=== PATIENT | male | born 1965 | race Caucasian/White ===

== ENCOUNTER 2019-01-12 23:22 | Inpatient (IN) ==
[2019-01-12] MEDS ORDERED: ALUM/MAG/SIMETH/LIDO VISC 1:1 30 ML BOTTLE PO STA (23:52)
[2019-01-12] MEDS ORDERED: SODIUM CHLORIDE 0.9% 1,000 ML IV STA (23:52)
[2019-01-12] MEDS ORDERED: ONDANSETRON 4 MG/2 ML VIAL IV STA (23:52)
[2019-01-13 00:15] LABS: Basophils # 0.1 10*3/uL (0.0-0.2); Basophils % 0.7 % (0.0-0.8); Eosinophils # 0.1 10*3/uL (0.0-0.87); Eosinophils % 1.4 % (0.00-10.9); Hematocrit 38.6 VOL% (42.0-52.0); Hemoglobin 13.4 GM/DL (14.0-18.0); Immature Granulocytes % 0.2 %; Immature Granulocytes Absolute 0.02 #; Lymphocytes # 1.2 10*3/uL (1.4-4.0); Mean Corpuscular HGB Conc 34.7 GM/DL (32-36); Mean Platelet Volume 10.2 FL (9.6-12.0); Monocytes % 7.9 % (1.7-12.7); Neutrophils % 74.8 % (38.7-73.9); Platelet Count 264 T/CUMM (130-400); Red Blood Count 4.02 MC/CUMM (3.8-5.5); Red Cell Distribution Width 12.4 % (9.3-17.3); White Blood Count 8.1 T/CUMM (4-12)
[2019-01-13 00:28] LABS: Apearance,Urine CLEAR (Clear); Bilirubin,Urine Negative (Negative); Blood, Urine Negative (Negative); Glucose,Urine (UA) >=500 mg/dL (Negative); Hyaline Casts,Urine 3 /LPF (0-3); Ketones,Urine Negative (Negative); Mucus,Urine Occasional /LPF (Occasional); Nitrite,Urine Negative (Negative); Protein,Urine Negative; RBC,Urine 1 /HPF (0-4); Urine Color Straw (Yellow); Urine Specific Gravity 1.006 (1.001-1.035); Urine Urobilinogen < 2.0 EU/DL (0.2-1.0); WBC,Urine <1 /HPF (0-6)
[2019-01-13] MEDS ORDERED: METOCLOPRAMIDE 10 MG/2 ML VIAL IV STA (01:11)
[2019-01-13] MEDS ORDERED: MORPHINE 4 MG/1 ML VIAL IV STA (01:11)
[2019-01-13] MEDS ORDERED: PANTOPRAZOLE 40 MG VIAL IV STA (01:11)
[2019-01-13 01:15] LABS: Albumin 4.3 G/DL (3.4-5.0); Bilirubin,Total 0.6 MG/DL (0.2-1.0); Osmolality,Calculated 267.5 MOS/KG (273-304); Total Protein 6.9 G/DL (6.4-8.3)
[2019-01-13] MEDS ORDERED: ONDANSETRON 4 MG/2 ML VIAL IV PRN (03:08)
[2019-01-13] MEDS ORDERED: GLUCAGON 1 MG VIAL IM PRN (03:08)
[2019-01-13] MEDS ORDERED: NICOTINE 21 MG/24 HR PATCH TRANSDERM PRN (03:08)
[2019-01-13] MEDS ORDERED: DEXTROSE 50% 25 GM/50 ML VIAL IV PRN (03:08)
[2019-01-13] MEDS ORDERED: LORazepam 2 MG/1 ML VIAL IV PRN (03:22)
[2019-01-13 03:42] LABS: Risk Ratio 1.81; VLDL CHOLESTEROL 24.6 MG/DL
[2019-01-13] MEDS: MORPHINE 4 MG/1 ML VIAL IV PRN ×5 (03:47→21:29)
[2019-01-13] MEDS ORDERED: INFLUENZA VIRUS VACCINE 0.5 ML SYRINGE IM ONE (04:43)
[2019-01-13] MEDS: SODIUM CHLORIDE 0.9% 1,000 ML IV SCH ×3 (05:24→12:40)
[2019-01-13 05:37] LABS: Barbiturates Screen,Urine Negative (Negative); Benzodiazepines Screen,Urine Negative (Negative); Cannabinoid Screen,Urine Negative (Negative); Opiate Screen,Urine Positive (Negative); Phencyclidine Screen,Urine Negative (Negative)
[2019-01-13] MEDS: INSULIN REGULAR 100 UNIT/ML SUBCUT SCH ×4 (07:16→21:21)
[2019-01-13] MEDS: THIAMINE 200 MG/2 ML VIAL IM SCH (08:00)
[2019-01-13] MEDS: INSULIN GLARGINE 100 UNIT/ML SUBCUT SCH ×2 (08:01→21:25)
[2019-01-13] MEDS: ACETAMINOPHEN 500 MG TABLET PO PRN ×2 (14:16→19:32)
[2019-01-13] MEDS: POTASSIUM CHLORIDE INJ 20 MEQ in LACTATED RINGERS 1,000 ML IV SCH ×2 (14:18→19:26)
[2019-01-14] MEDS: POTASSIUM CHLORIDE INJ 20 MEQ in LACTATED RINGERS 1,000 ML IV SCH ×5 (01:25→21:38)
[2019-01-14] MEDS: MORPHINE 4 MG/1 ML VIAL IV PRN ×3 (01:29→16:05)
[2019-01-14 05:22] LABS: Albumin 3.5 G/DL (3.4-5.0); Bilirubin,Total 0.8 MG/DL (0.2-1.0); Total Protein 6.4 G/DL (6.4-8.3)
[2019-01-14] MEDS: INSULIN REGULAR 100 UNIT/ML SUBCUT SCH ×4 (07:52→20:37)
[2019-01-14] MEDS: THIAMINE 200 MG/2 ML VIAL IM SCH (08:41)
[2019-01-14] MEDS: INSULIN GLARGINE 100 UNIT/ML SUBCUT SCH ×2 (08:42→20:36)
[2019-01-14] MEDS: POLYETHYLENE GLYCOL POWDER 17 GM PACK PO SCH ×2 (08:43→20:37)
[2019-01-14] MEDS ORDERED: CYCLOBENZAPRINE 10 MG TABLET PO PRN (10:17)
[2019-01-14] MEDS: ASPIRIN EC 81 MG TABLET PO SCH (10:27)
[2019-01-14] MEDS: amLODIPine 10 MG TABLET PO SCH (10:27)
[2019-01-14] MEDS: METOPROLOL SUCCINATE XL 50 MG TABLET PO SCH (10:27)
[2019-01-14] MEDS: ATORVASTATIN 40 MG TABLET PO SCH (10:27)
[2019-01-14] MEDS: ACETAMINOPHEN 500 MG TABLET PO PRN (11:21)
[2019-01-15] MEDS: POTASSIUM CHLORIDE INJ 20 MEQ in LACTATED RINGERS 1,000 ML IV SCH (02:50)
[2019-01-15] MEDS: MORPHINE 4 MG/1 ML VIAL IV PRN (03:18)
[2019-01-15 06:01] LABS: Basophils % 0.8 % (0.0-0.8); Eosinophils # 0.2 10*3/uL (0.0-0.87); Hematocrit 34.4 VOL% (42.0-52.0); Hemoglobin 11.8 GM/DL (14.0-18.0); Immature Granulocytes % 0.2 %; Immature Granulocytes Absolute 0.01 #; Lymphocytes # 1.2 10*3/uL (1.4-4.0); Lymphocytes % 23.3 % (21.2-54.2); Mean Corpuscular HGB Conc 34.3 GM/DL (32-36); Mean Corpuscular Volume 97.5 FL (87-102); Mean Platelet Volume 9.9 FL (9.6-12.0); Monocytes % 11.3 % (1.7-12.7); Neutrophils % 60.4 % (38.7-73.9); Platelet Count 193 T/CUMM (130-400); Red Blood Count 3.53 MC/CUMM (3.8-5.5); Red Cell Distribution Width 12.2 % (9.3-17.3)
[2019-01-15 06:19] LABS: Calcium 9.3 MG/DL (8.5-10.1); Osmolality,Calculated 277.7 MOS/KG (273-304)
[2019-01-15 07:42] VITALS: BP 136/94
[2019-01-15] MEDS ORDERED: hydroCHLOROthiazide 25 MG TABLET PO SCH (09:00)
[2019-01-15] MEDS: ATORVASTATIN 40 MG TABLET PO SCH (09:44)
[2019-01-15] MEDS: amLODIPine 10 MG TABLET PO SCH (09:45)
[2019-01-15] MEDS: METOPROLOL SUCCINATE XL 50 MG TABLET PO SCH (09:45)
[2019-01-15] MEDS: ASPIRIN EC 81 MG TABLET PO SCH (09:45)
[2019-01-15] MEDS: THIAMINE 200 MG/2 ML VIAL IM SCH (09:45)
[2019-01-15] MEDS: INSULIN GLARGINE 100 UNIT/ML SUBCUT SCH (09:46)
[2019-01-15] MEDS: INSULIN REGULAR 100 UNIT/ML SUBCUT SCH (09:46)
[2019-01-15] MEDS: POLYETHYLENE GLYCOL POWDER 17 GM PACK PO SCH (09:47)
== END 2019-01-15 10:05 | disposition home or self-care (01) | DRG 439 ==
LOC: N.ED 23:22 → N.EDINP 01-13 03:08 → N.3E 01-13 04:37
PROVIDERS: ADMIT Emergency Medicine; ATTEND Emergency Medicine

== ENCOUNTER 2022-01-10 14:27 | Inpatient (IN) ==
[2022-01-10] MEDS ORDERED: SODIUM CHLORIDE 0.9% 1,000 ML IV STA (14:46)
[2022-01-10 15:18] LABS: Alanine Aminotransferase 36 U/L (16-61); Albumin 3.5 G/DL (3.4-5.0); Alkaline Phosphatase 171 U/L (45-117); Aspartate Amino Transferase 30 U/L (0-37); Blood Urea Nitrogen 34 MG/DL (7-18); Calcium 8.2 MG/DL (8.5-10.1); Carbon Dioxide 4 MMOL/L (21-32); Chloride 84 MMOL/L (98-107); Osmolality,Calculated 307.2 MOS/KG (273-304); Total Protein 6.2 G/DL (6.4-8.2)
[2022-01-10 15:22] LABS: Glucose 1137 MG/DL (74-106)
[2022-01-10 15:23] LABS: Potassium 6.7 MMOL/L (3.5-5.1); Sodium 120 MMOL/L (136-145)
[2022-01-10] MEDS ORDERED: INSULIN REGULAR 100 UNIT/ML IV ONE (15:23)
[2022-01-10 15:24] LABS: Basophils # 0.1 10*3/uL (0.0-0.2); Basophils % 0.6 % (0.0-0.8); Eosinophils % 0.1 % (0.00-10.9); Hematocrit 31.2 VOL% (42.0-52.0); Hemoglobin 9.1 GM/DL (14.0-18.0); Immature Granulocytes % 0.8 %; Immature Granulocytes Absolute 0.13 #; Lymphocytes # 1.2 10*3/uL (1.4-4.0); Lymphocytes % 7.4 % (21.2-54.2); Mean Corpuscular HGB Conc 29.2 GM/DL (32-36); Mean Corpuscular Volume 113.5 FL (87-102); Mean Platelet Volume 10.6 FL (9.6-12.0); Monocytes # 1.3 10*3/uL (0.11-0.8); Monocytes % 7.7 % (1.7-12.7); Neutrophils % 83.4 % (38.7-73.9); Platelet Count 342 T/CUMM (130-400); Red Blood Count 2.75 MC/CUMM (3.8-5.5); Red Cell Distribution Width 12.7 % (9.3-17.3); White Blood Count 16.3 T/CUMM (4-12)
[2022-01-10] MEDS ORDERED: INSULIN REGULAR DRIP 100 ML IV PRN (15:28)
[2022-01-10] MEDS ORDERED: LACTATED RINGERS 2,000 ML IV ONE (15:32)
[2022-01-10] MEDS ORDERED: MAGNESIUM SULF RIDER 2 GM/50 ML PREMIX IV PRN (15:42)
[2022-01-10] MEDS ORDERED: MAGNESIUM SULF RIDER 4 GM/100 ML PREMIX IV PRN (15:42)
[2022-01-10] MEDS ORDERED: DEXTROSE 50% 25 GM/50 ML VIAL IV PRN (15:42)
[2022-01-10] MEDS ORDERED: DEXTROSE 10% 250 ML BAG IV PRN ×2 (15:42)
[2022-01-10] MEDS ORDERED: GLUCAGON 1 MG VIAL IM PRN (15:42)
[2022-01-10] MEDS ORDERED: POTASSIUM CHLORIDE RIDER 10 MEQ/100 ML PREMIX IV PRN (15:42)
[2022-01-10] MEDS ORDERED: SODIUM CHLORIDE 0.9% IV PRN (15:42)
[2022-01-10] MEDS ORDERED: SODIUM PHOSPHATE IV PRN (15:42)
[2022-01-10 16:42] LABS: Phosphorous 10.3 MG/DL (2.5-4.9)
[2022-01-10] MEDS ORDERED: INSULIN GLARGINE 100 UNIT/ML SUBCUT SCH (17:00)
[2022-01-10] MEDS ORDERED: CYCLOBENZAPRINE 10 MG TABLET PO PRN (17:18)
[2022-01-10] MEDS ORDERED: ONDANSETRON 4 MG/2 ML VIAL IV PRN (17:21)
[2022-01-10 17:28] LABS: Osmolality,Calculated 306.4 MOS/KG (273-304); Potassium 5.2 MMOL/L (3.5-5.1)
[2022-01-10] MEDS: LACTATED RINGERS 1,000 ML IV SCH ×4 (17:50→22:26)
[2022-01-10 17:55] LABS: Bilirubin,Urine Negative (Negative); Blood, Urine Negative (Negative); Glucose,Urine (UA) >=500 mg/dL (Negative); Ketones,Urine 20 mg/dL (Negative); Mucus,Urine Occasional /LPF (Occasional); Nitrite,Urine Negative (Negative); Protein,Urine Negative (Negative); RBC,Urine 4 /HPF (0-4); Squamous Epithelial Cell,Urine Occasional /HPF (0-10); Urine Appearance CLEAR (Clear); Urine Color Yellow (Yellow); Urine Specific Gravity 1.018 (1.001-1.035); Urine Urobilinogen < 2.0 eU/dL (<2.0)
[2022-01-10 18:41] LABS: Arterial Base Excess iSTAT -24 MMOL/L (-2.5-2.5); Arterial Bicarbonate iSTAT 5.6 MMOL/L (20-26); Arterial O2 Saturation iSTAT 72 % (95-100); Arterial PCO2 iSTAT 22 MM HG (35-48); Arterial PO2 iSTAT 55 MM HG (80-95); Arterial Total CO2 iSTAT 6 MMO/L (23-27); Arterial pH iSTAT 7.017 (7.35-7.45)
[2022-01-10 20:00] LABS: Calcium 7.1 MG/DL (8.5-10.1); Osmolality,Calculated 295.2 MOS/KG (273-304); Potassium 5.7 MMOL/L (3.5-5.1)
[2022-01-10] MEDS: ENOXAPARIN 30 MG/0.3 ML SYRINGE SUBCUT SCH (20:45)
[2022-01-10 21:29] LABS: Arterial Base Excess iSTAT -19 MMOL/L (-2.5-2.5); Arterial Bicarbonate iSTAT 7.5 MMOL/L (20-26); Arterial O2 Saturation iSTAT 99 % (95-100); Arterial PCO2 iSTAT 20 MM HG (35-48); Arterial PO2 iSTAT 144 MM HG (80-95); Arterial Total CO2 iSTAT 8 MMO/L (23-27); Arterial pH iSTAT 7.182 (7.35-7.45)
[2022-01-10 23:46] LABS: Calcium 7.2 MG/DL (8.5-10.1); Osmolality,Calculated 285.8 MOS/KG (273-304); Potassium 4.6 MMOL/L (3.5-5.1)
[2022-01-11 00:26] LABS: Arterial Base Excess iSTAT -11 MMOL/L (-2.5-2.5); Arterial Bicarbonate iSTAT 13.9 MMOL/L (20-26); Arterial O2 Saturation iSTAT 97 % (95-100); Arterial PCO2 iSTAT 28 MM HG (35-48); Arterial PO2 iSTAT 103 MM HG (80-95); Arterial Total CO2 iSTAT 15 MMO/L (23-27); Arterial pH iSTAT 7.305 (7.35-7.45)
[2022-01-11] MEDS: LACTATED RINGERS 1,000 ML IV SCH ×3 (00:59→05:50)
[2022-01-11 03:00] LABS: Basophils % 0.4 % (0.0-0.8); Hematocrit 25.9 VOL% (42.0-52.0); Hemoglobin 8.6 GM/DL (14.0-18.0); Immature Granulocytes % 0.4 %; Immature Granulocytes Absolute 0.03 #; Lymphocytes # 1.1 10*3/uL (1.4-4.0); Lymphocytes % 13.6 % (21.2-54.2); Mean Corpuscular HGB Conc 33.2 GM/DL (32-36); Mean Corpuscular Volume 98.1 FL (87-102); Mean Platelet Volume 9.6 FL (9.6-12.0); Monocytes # 0.6 10*3/uL (0.11-0.8); Neutrophils % 78.6 % (38.7-73.9); Platelet Count 224 T/CUMM (130-400); Red Blood Count 2.64 MC/CUMM (3.8-5.5); Red Cell Distribution Width 11.6 % (9.3-17.3)
[2022-01-11 03:23] LABS: Calcium 7.6 MG/DL (8.5-10.1); Osmolality,Calculated 274.9 MOS/KG (273-304); Potassium 4.2 MMOL/L (3.5-5.1)
[2022-01-11 03:35] LABS: Phosphorous 4.5 MG/DL (2.5-4.9)
[2022-01-11] MEDS: ACETAMINOPHEN 325 MG TABLET PO PRN ×2 (04:33→13:03)
[2022-01-11] MEDS: DEXT 5% NACL 0.9% KCL 20 MEQ 20 MEQ/1,000 ML BAG IV SCH ×4 (05:15→22:52)
[2022-01-11 08:27] LABS: Calcium 7.7 MG/DL (8.5-10.1); Osmolality,Calculated 274.1 MOS/KG (273-304); Potassium 3.8 MMOL/L (3.5-5.1)
[2022-01-11] MEDS: PANTOPRAZOLE 40 MG VIAL IV SCH (08:35)
[2022-01-11] MEDS: ASPIRIN EC 81 MG TABLET PO SCH (08:35)
[2022-01-11] MEDS ORDERED: INSULIN REGULAR 100 UNIT/ML SUBCUT SCH ×2 (11:30→14:00)
[2022-01-11] MEDS: INSULIN REGULAR 100 UNIT/ML SUBCUT SCH ×4 (11:40→23:14)
[2022-01-11 13:36] LABS: Calcium 8.1 MG/DL (8.5-10.1); Osmolality,Calculated 270.2 MOS/KG (273-304); Potassium 3.9 MMOL/L (3.5-5.1)
[2022-01-11] MEDS: ENOXAPARIN 30 MG/0.3 ML SYRINGE SUBCUT SCH (20:12)
[2022-01-11] MEDS ORDERED: INSULIN GLARGINE 100 UNIT/ML SUBCUT SCH (21:00)
[2022-01-11 22:57] LABS: Calcium 8.4 MG/DL (8.5-10.1); Osmolality,Calculated 275.7 MOS/KG (273-304); Potassium 3.8 MMOL/L (3.5-5.1)
[2022-01-12] MEDS: ACETAMINOPHEN 325 MG TABLET PO PRN ×2 (00:10→15:06)
[2022-01-12] MEDS: DEXT 5% NACL 0.9% KCL 20 MEQ 20 MEQ/1,000 ML BAG IV SCH ×4 (01:14→21:46)
[2022-01-12] MEDS: INSULIN REGULAR 100 UNIT/ML SUBCUT SCH ×6 (05:24→23:23)
[2022-01-12 05:52] LABS: Calcium 8.1 MG/DL (8.5-10.1); Osmolality,Calculated 277.4 MOS/KG (273-304); Potassium 4.3 MMOL/L (3.5-5.1)
[2022-01-12] MEDS: PANTOPRAZOLE 40 MG VIAL IV SCH (08:06)
[2022-01-12] MEDS: ASPIRIN EC 81 MG TABLET PO SCH (08:07)
[2022-01-12] MEDS: ENOXAPARIN 30 MG/0.3 ML SYRINGE SUBCUT SCH (20:06)
[2022-01-12] MEDS: lisinopriL 20 MG TABLET PO SCH (20:21)
[2022-01-12] MEDS: amLODIPine 10 MG TABLET PO SCH (20:21)
[2022-01-12] MEDS: METOPROLOL SUCCINATE XL 50 MG TABLET PO SCH (20:21)
[2022-01-12] MEDS ORDERED: INSULIN GLARGINE 100 UNIT/ML SUBCUT SCH (21:00)
[2022-01-13] MEDS: ACETAMINOPHEN 325 MG TABLET PO PRN (04:26)
[2022-01-13] MEDS: INSULIN REGULAR 100 UNIT/ML SUBCUT SCH ×2 (05:23→08:12)
[2022-01-13 05:42] LABS: Calcium 8.5 MG/DL (8.5-10.1); Osmolality,Calculated 282.3 MOS/KG (273-304); Potassium 4.5 MMOL/L (3.5-5.1)
[2022-01-13] MEDS: DEXT 5% NACL 0.9% KCL 20 MEQ 20 MEQ/1,000 ML BAG IV SCH (06:40)
[2022-01-13] MEDS ORDERED: MAGNESIUM SULF RIDER 2 GM/50 ML PREMIX IV ONE (07:14)
[2022-01-13 07:59] VITALS: BP 156/108
[2022-01-13] MEDS: PANTOPRAZOLE 40 MG VIAL IV SCH (08:23)
[2022-01-13] MEDS: METOPROLOL SUCCINATE XL 50 MG TABLET PO SCH (08:24)
[2022-01-13] MEDS: ASPIRIN EC 81 MG TABLET PO SCH (08:24)
[2022-01-13] MEDS: lisinopriL 20 MG TABLET PO SCH (08:24)
[2022-01-13] MEDS: amLODIPine 10 MG TABLET PO SCH (08:24)
[2022-01-13] MEDS ORDERED: MAGNESIUM CHLORIDE 64 MG TABLET PO ONE (08:36)
[2022-01-13] MEDS ORDERED: hydroCHLOROthiazide 25 MG TABLET PO SCH (09:00)
[2022-01-13] MEDS ORDERED: lisinopriL 20 MG TABLET PO SCH (09:00)
[2022-01-13] MEDS ORDERED: ATORVASTATIN 40 MG TABLET PO SCH (09:00)
== END 2022-01-13 09:21 | disposition home or self-care (01) | DRG 638 ==
LOC: N.ED 14:27 → N.EDINP 15:42 → N.CC 16:12
PROVIDERS: ADMIT Internal Medicine; ATTEND Internal Medicine